=== PATIENT | male | born 2000 | race Two or more races ===

== ENCOUNTER 2025-03-04 22:19 | Inpatient (IN) | payer BC, MEDICAID, SELFPAY ==
--- NOTE | 2025-03-04 22:20 | ECG_ITS ---
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 Measurements Intervals [place] Rate: 62 P: -50 [place]: 166 QRS: 171 QRSD: 109 T: 7 QT: 365 QTc: 372 Interpretive Statements SINUS RHYTHM INCOMPLETE RIGHT BUNDLE BRANCH BLOCK [90+ ms QRS DURATION, TERMINAL R IN V1/V2, 40+ ms S IN I/aVL/V4/V5/V6] POSSIBLE RIGHT VENTRICULAR HYPERTROPHY [SOME/ALL OF: PROMINENT R IN V1, LATE TRANSITION, RAD, SADIA, SSS] No previous ECG available for comparison Electronically Signed On 03-08-2025 09:27:45 CDT by Kevin Romero M.D. [email or web address]
[2025-03-04 22:23] VITALS: BP 144/84; PULSE 90; RESP 18; TEMP 36.8; O2SAT 97; BMI 30.4
--- NOTE | 2025-03-04 22:27 | ED.C_ITS ---
HPI - Psych 2 General: Chief Complaint: Psychiatric Symptoms Stated Complaint: SI Time Seen by Provider: 03/04/25 22:20 History of Present Illness: 24-year-old male with a history of depre ssion who presents emergency room by ambulance with suicidal thoughts. He has a plan of walking into traffic. He says he lost his job today. No self-harm at this point. No fevers. No cough. No chest pain. No abdominal pain. No vomiting. Related Data Home Medications ?Medication ?Instructions ?Recorded ?Confirmed guanfacine 1 mg tablet,extended 1 mg PO DAILY 12/15/24 12/15/24 release 24 hr quetiapine 25 mg tablet 25 mg PO DAILY 12/15/2412/05 Allergies Allergy/AdvReac Type Severity Reaction Status Date / Time No Known Allergies Allergy Unverified 12/15/24 10:17 Review of Systems 2 Narrative: Constitutional symptoms: Negative except as documented in HPI. Skin symptoms: Negative except as documented in HPI. Eye symptoms: Negative except as documented in HPI. ENMT symptoms: Negative except as documented in HPI. Respiratory symptoms: Negative except as documented in HPI. Cardiovascular symptoms: Negative except as documented in HPI. Gastrointestinal symptoms: Negative except as documented in HPI. Genitourinary symptoms: Negative except as documented in HPI. Musculoskeletal symptoms: Negative except as documented in HPI. Neurologic symptoms: Negative except as documented in HPI. Psychiatric symptoms: Negative except as documented in HPI. Endocrine symptoms: Negative except as documented in HPI. [facility] ED 2 PFS: Medical History (Updated 03/04/25 @ 23:11 by Yoanna Blackwell MD) Psychiatric care High-functioning autism spectrum disorder ADHD Anxiety Family History Grandmother Diabetes mellitus, type 2 Social History (Updated 12/15/24 @ 10:24 by Tayler Abdul LPN) Smoking and tobacco/nicotine status: current some day tobacco/nicotine user Alcohol intake: current Alcohol intake frequency: few times a month Substance/Drug Use: current Physical Exam 2 Narrative: EXAM NARRATIVE: General: Alert, no acute distress. Skin: Warm, dry. Head: Normocephalic, atraumatic. Neck: Supple, trachea midline. Eye: Extraocular movements are intact. Ears, nose, mouth and throat: mucosa moist. Cardiovascular: Regular, Normal peripheral perfusion. Respiratory: Lungs are clear to auscultation, respirations are non-labored, breath sounds are equal, Symmetrical chest wall expansion. Gastrointestinal: Soft, Nontender, Non distended Musculoskeletal: Normal ROM, no deformity. Neurological: Alert and oriented, No focal neurological deficit observed. Psychiatric: Cooperative, patient expresses suicidal thoughts Course 2 Vital Signs: Vital signs: Vital Signs Temperature 98.2 F 03/04/25 22: Pulse Rate 90 03/04/25 22:23 Respiratory Rate 18 03/04/25 22: Blood Pressure 144/84 03/04/25 22:23 Pulse Oximetry 97 03/04/25 22:23 Oxygen Delivery Me thod Room Air 03/04/25 22:23 MDM - Psych Medical Decision Making Differential diagnosis: Patient with reported depression and suicidal ideation. concerns for infection, alcohol intoxication, cardiac issues or other medical problems prior to psychiatric admission. Workup: labwork, ekg ordered to evaluate the pathologies and to clear the patient medically prior to psychiatric admission EKG: Time 2336. Rate 62. Normal sinus rhythm, No ST-T changes, no ectopy, normal [place] & QRS intervals, This was reviewed and interpreted by myself the ER physician at 2239. Lab Review: Laboratory results were reviewed and interpreted by myself the emergency room physician. - Medically cleared. - EKG shows no ischemic changes. - Blood alcohol level is negative, -Tylenol and salicylate levels are negative. - Drug screen is positive for marijuana - No signs of infection, urinalysis clear and white count is not elevated - No anemia. - BUN and creatinine are within normal limits. Consultation: I spoke with Dr. Craft who agrees to admission. Assessment and plan: Depression Suicidal ideation -Admission to neuropsychiatric unit for continued evaluation and treatment. - All lab work was reviewed and interpreted personally by myself, the ER physician - Evaluation and treatment of this problem were appropriate in the emergency setting Lab Data 03/04/25 22:35 03/04/25 22:35 Laboratory Results WBC 7.09 10^3/uL (3.29-11.43) 03/04/25 22:35 RBC 5.55 10^6/uL (3.85-5.65) 03/04/25 22: Hgb 16.90 g/dL (11.27-16.99) 03/04/25 22:35 Hct 49.2 % (37-53) 03/04/25 22:35 MCV 88.6 fl (82-101) 03/04/25 22:35 MCH 30.5 pg (27-33) 03/04/25 22:35 MCHC 34.3 g/dL (30-55) 03/04/25 22:35 RDW 11.7 % (12.1-15.1) L 03/04/25 22:35 Plt Count 264 10^3/cmm (157-399) 03/04/25 22:35 MPV 9.7 fL (7.4-10.4) 03/04/25 22:35 Neut % (Auto) 61.8 % 03/04/25 22:35 Lymph % (Auto) 28.6 % 03/04/25 22:35 [place] % (Auto) 8.3 % 03/04/25 22:35 Eos % (Auto) 0.7 % 03/04/25 22: Baso % (Auto) 0.3 % 03/04/25 22:35 Neut # (Auto) 4.38 10^3/uL (1.8-7.7) 03/04/25 22:35 Lymph # (Auto) 2.0 10^3/uL (0.8-4.8) 03/04/25 22:35 [place] # (Auto) 0.6 10^3/uL (0.2-0.9) 03/04/25 22:35 Eos # (Auto) 0.1 10^3/uL (0.0-0.8) 03/04/25 22:35 Baso # (Auto) 0.0 10^3/uL (0.0-0.1) 03/04/25 22:35 Nucleated RBC % (auto) 0 % 03/04/25: Nucleated RBCs # 0.0 /100WBC 03/04/25 22:35 Sodium 141 mmol/L (136-145) 03/04/25 22:35 Potassium 3.9 mmol/L (3.5-5.1) 03/04/25 22: Chloride 100 mmol/L (98-107) 03/04/25 22: Carbon Dioxide 29 mmol/L (22-29) 03/04/25 22:35 Anion Gap 15.9 (5-19) 03/04/25 22:35 BUN 13 mg/dL (6-20) 03/04/25: Creatinine 0.8 mg/dL (0.7-1.2) 03/04/25: GFR Calculation 120.9 mL/min (90-130) 03/04/25 22: Glucose 95 mg/dL (65-115) 03/04/25 22: Calculated Osmolality 292 mOsm/kg (285-295) 03/04/25: Calcium 9.6 mg/dL (8.5-10.5) 03/04/25: Total Bilirubin 1.0 mg/dL (0.15-1.2) 03/04/25 22: AST 28 U/L (0-40) 03/04/25: ALT 36 U/L (0-41) 03/04/25: Alkaline Phosphatase 122 U/L (40-130) 03/04/25: Total Protein 8.7 g/dL (6.6-8.7) 03/04/25 22: Albumin 5.2 g/dL (3.5-5.2) 03/04/25 22: Globulin 3.5 g/dL (1.3-4.6) 03/04/25 22: TSH 1.32 uIU/mL (0.27-4.20) 03/04/25 22: Urine Color Dark yellow (Yellow) A 03/04/25: Urine Appearance Turbid (CLEAR) A 03/04/25: Urine pH 5.0 (5-7) 03/04/25: Ur Specific [place] 1.040 (1.005-1.030) H 03/04/25: Urine Protein Trace (Negative) A 03/04/25: Urine Glucose (UA) Negative (Normal) 03/04/25: Urine Ketones Trace (Negative) 03/04/25: Urine Blood Negative (Negative) 03/04/25: Urine Nitrate Negative (Negative) 03/04/25: Urine Bilirubin 1+ (Negative) H 03/04/25: Urine Urobilinogen 1.0 mg/dL (Negative) 05/01/25 22:32 Ur Leukocyte Esterase Negative (Negative) 03/04/25 22:32 Urine RBC 0-2 /hpf (0-2) 03/04/25 22:32 Urine WBC 0-5 /hpf (0-5) 03/04/25 22:32 Ur Squamous Epith Cells 0-5 /hpf (0-5) 03/04/25 22:32 Amorphous Sediment Not Reportable 03/04/25 22:32 Urine Bacteria None seen /hpf (NONE) 03/04/25 22:32 Hyaline Casts 11.97 /lpf 03/04/25 22:32 Urine Mucus 3+ /hpf 03/04/25 22:32 Salicylates < 0.3 mg/dL (3-10) L 03/04/25 22:35 Urine Opiates Screen Negative ng/mL (Negative) 03/04/25 22:32 Acetaminophen < 5.0 ug/mL (10-30) L 03/04/25 22:35 Ur Barbiturates Screen Negative ng/mL (Negative) 03/04/25 22:32 Ur Phencyclidine Scrn Negative ng/mL (Negative) 03/04/25 22:32 Ur Amphetamines Screen Negative ng/mL (Negative) 03/04/25 22:32 U Benzodiazepines Scrn Negative ng/mL (Negative) 03/04/25 22:32 Urine Cocaine Screen Negative ng/mL (Negative) 03/04/25 22:32 U Marijuana (THC) Screen Positive ng/mL (Negative) H 03/04/25 22:32 Ethyl Alcohol < 10 mg/dL (0-10) 03/04/25 22:35 No radiology studies performed this visit Discharge Plan Discharge Patient Disposition: Admitted As Inpatient Admit Provider: Tonny Craft Clinical Impression: Depression, Suicidal ideation Condition: Stable Coding Level of Care Code ED Security Installation Technician for Janet Castro
--- NOTE | 2025-03-04 22:27 | W.ED.PSYCHS ---
HPI - Psych General: Chief Complaint: Psychiatric Symptoms Stated Complaint: SI Time Seen by Provider: 03/04/25 22:20 History of Present Illness: 24-year-old male with a history of depression who presents emergency room by ambulance with suicidal thoughts. He has a plan of walking into traffic. He says he lost his job today. No self-harm at this point. No fevers. No cough. No chest pain. No abdominal pain. No vomiting. Related Data Home Medications ?Medication ?Instructions ?Recorded ?Confirmed guanfacine 1 mg tablet,extended 1 mg PO DAILY 12/15/24 12/15/24 release 24 hr quetiapine 25 mg tablet 25 mg PO DAILY 12/15/24 12/15/24 Allergies Allergy/AdvReac Type Severity Reaction Status Date / Time No Known Allergies Allergy Unverified 12/15/24 10:17 Review of Systems Narrative: Constitutional symptoms: Negative except as documented in HPI. Skin symptoms: Negative except as documented in HPI. Eye symptoms: Negative except as documented in HPI. ENMT symptoms: Negative except as documented in HPI. Respiratory symptoms: Negative except as documented in HPI. Cardiovascular symptoms: Negative except as documented in HPI. Gastrointestinal symptoms: Negative except as documented in HPI. Genitourinary symptoms: Negative except as documented in HPI. Musculoskeletal symptoms: Negative except as documented in HPI. Neurologic symptoms: Negative except as documented in HPI. Psychiatric symptoms: Negative except as documented in HPI. Endocrine symptoms: Negative except as documented in HPI. [facility]: Medical History (Updated 03/04/25 @ 23:11 by Yoanna Blackwell MD) Psychiatric care High-functioning autism spectrum disorder ADHD Anxiety Family History Grandmother Diabetes mellitus, type 2 Social History (Updated 12/15/24 @ 10:24 by Tayler Abdul LPN) Smoking and tobacco/nicotine status: current some day tobacco/nicotine user Alcohol intake: current Alcohol intake frequency: few times a month Substance/Drug Use: current Physical Exam Narrative: EXAM NARRATIVE: General: Alert, no acute distress. Skin: Warm, dry. Head: Normocephalic, atraumatic. Neck: Supple, trachea midline. Eye: Extraocular movements are intact. Ears, nose, mouth and throat: mucosa moist. Cardiovascular: Regular, Normal peripheral perfusion. Respiratory: Lungs are clear to auscultation, respirations are non-labored, breath sounds are equal, Symmetrical chest wall expansion. Gastrointestinal: Soft, Nontender, Non distended Musculoskeletal: Normal ROM, no deformity. Neurological: Alert and oriented, No focal neurological deficit observed. Psychiatric: Cooperative, patient expresses suicidal thoughts Course Vital Signs: Vital signs: Vital Signs Temperature 98.2 F 03/04/25 22:23 Pulse Rate 90 03/04/25 22:23 Respiratory Rate 18 03/04/25 22:23 Blood Pressure 144/84 03/04/25 22:23 Pulse Oximetry 97 03/04/25 22:23 Oxygen Delivery Me thod Room Air 03/04/25 22:23 MDM - Psych Medical Decision Making Differential diagnosis: Patient with reported depression and suicidal ideation. concerns for infection, alcohol intoxication, cardiac issues or other medical problems prior to psychiatric admission. Workup: labwork, ekg ordered to evaluate the pathologies and to clear the patient medically prior to psychiatric admission EKG: Time 2336. Rate 62. Normal sinus rhythm, No ST-T changes, no ectopy, normal [place] & QRS intervals, This was reviewed and interpreted by myself the ER physician at 2239. Lab Review: Laboratory results were reviewed and interpreted by myself the emergency room physician. - Medically cleared. - EKG shows no ischemic changes. - Blood alcohol level is negative, -Tylenol and salicylate levels are negative. - Drug screen is positive for marijuana - No signs of infection, urinalysis clear and white count is not elevated - No anemia. - BUN and creatinine are within normal limits. Consultation: I spoke with Dr. Craft who agrees to admission. Assessment and plan: Depression Suicidal ideation -Admission to neuropsychiatric unit for continued evaluation and treatment. - All lab work was reviewed and interpreted personally by myself, the ER physician - Evaluation and treatment of this problem were appropriate in the emergency setting Lab Data 03/04/25 22:35 03/04/25 22:35 Laboratory Results WBC 7.09 10^3/uL (3.29-11.43) 03/04/25 22:35 RBC 5.55 10^6/uL (3.85-5.65) 03/04/25 22:35 Hgb 16.90 g/dL (11.27-16.99) 03/04/25 22: Hct 49.2 % (37-53) 03/04/25 22: MCV 88.6 fl (82-101) 03/04/25 22: MCH 30.5 pg (27-33) 03/04/25 22: MCHC 34.3 g/dL (30-55) 03/04/25 22: RDW 11.7 % (12.1-15.1) L 03/04/25 22: Plt Count 264 10^3/cmm (157-399) 03/04/25 22: MPV 9.7 fL (7.4-10.4) 03/04/25 22: Neut % (Auto) 61.8 % 03/04/25 22: Lymph % (Auto) 28.6 % 03/04/25 22: [place] % (Auto) 8.3 % 03/04/25 22: Eos % (Auto) 0.7 % 03/04/25: Baso % (Auto) 0.3 % 03/04/25: Neut # (Auto) 4.38 10^3/uL (1.8-7.7) 03/04/25 22: Lymph # (Auto) 2.0 10^3/uL (0.8-4.8) 03/04/25 22: [place] # (Auto) 0.6 10^3/uL (0.2-0.9) 03/04/25 22: Eos # (Auto) 0.1 10^3/uL (0.0-0.8) 03/04/25: Baso # (Auto) 0.0 10^3/uL (0.0-0.1) 03/04/25 22: Nucleated RBC % (auto) 0 % 03/04/25: Nucleated RBCs # 0.0 /100WBC 03/04/25 22: Sodium 141 mmol/L (136-145) 03/04/25: Potassium 3.9 mmol/L (3.5-5.1) 03/04/25: Chloride 100 mmol/L (98-107) 03/04/25: Carbon Dioxide 29 mmol/L (22-29) 03/04/25: Anion Gap 15.9 (5-19) 05/01/25 22:35 BUN 13 mg/dL (6-20) 03/04/25 22: Creatinine 0.8 mg/dL (0.7-1.2) 03/04/25 22: GFR Calculation 120.9 mL/min (90-130) 03/04/25 22: Glucose 95 mg/dL (65-115) 03/04/25 22: Calculated Osmolality 292 mOsm/kg (285-295) 03/04/25 22: Calcium 9.6 mg/dL (8.5-10.5) 03/04/25: Total Bilirubin 1.0 mg/dL (0.15-1.2) 03/04/25: AST 28 U/L (0-40) 03/04/25: ALT 36 U/L (0-41) 03/04/25: Alkaline Phosphatase 122 U/L (40-130) 03/04/25 22: Total Protein 8.7 g/dL (6.6-8.7) 03/04/25: Albumin 5.2 g/dL (3.5-5.2) 03/04/25: Globulin 3.5 g/dL (1.3-4.6) 03/04/25: TSH 1.32 uIU/mL (0.27-4.20) 03/04/25: Urine Color Dark yellow (Yellow) A 03/04/25: Urine Appearance Turbid (CLEAR) A 03/04/25: Urine pH 5.0 (5-7) 03/04/25: Ur Specific [place] 1.040 (1.005-1.030) H 03/04/25: Urine Protein Trace (Negative) A 03/04/25: Urine Glucose (UA) Negative (Normal) 03/04/25 Urine Ketones Trace (Negative) 03/04/25: Urine Blood Negative (Negative) 03/04/25: Urine Nitrate Negative (Negative) 03/04/25: Urine Bilirubin 1+ (Negative) H 03/04/25: Urine Urobilinogen 1.0 mg/dL (Negative) 03/04/25 Ur Leukocyte Esterase Negative (Negative) 05/01/25 22:32 Urine RBC 0-2 /hpf (0-2) 03/04/25 22:32 Urine WBC 0-5 /hpf (0-5) 03/04/25 22:32 Ur Squamous Epith Cells 0-5 /hpf (0-5) 03/04/25 22:32 Amorphous Sediment Not Reportable 03/04/25 22:32 Urine Bacteria None seen /hpf (NONE) 03/04/25 22:32 Hyaline Casts 11.97 /lpf 03/04/25 22:32 Urine Mucus 3+ /hpf 03/04/25 22:32 Salicylates < 0.3 mg/dL (3-10) L 03/04/25 22:35 Urine Opiates Screen Negative ng/mL (Negative) 03/04/25 22:32 Acetaminophen < 5.0 ug/mL (10-30) L 03/04/25 22:35 Ur Barbiturates Screen Negative ng/mL (Negative) 03/04/25 22:32 Ur Phencyclidine Scrn Negative ng/mL (Negative) 03/04/25 22:32 Ur Amphetamines Screen Negative ng/mL (Negative) 03/04/25 22:32 U Benzodiazepines Scrn Negative ng/mL (Negative) 03/04/25 22:32 Urine Cocaine Screen Negative ng/mL (Negative) 03/04/25 22:32 U Marijuana (THC) Screen Positive ng/mL (Negative) H 03/04/25 22:32 Ethyl Alcohol < 10 mg/dL (0-10) 03/04/25 22:35 No radiology studies performed this visit Discharge Plan Discharge Patient Disposition: Admitted As Inpatient Admit Provider: Tonny Craft Clinical Impression: Depression, Suicidal ideation Condition: Stable Coding Level of Care Code ED Pulmonology Technician for Janet Castro
[2025-03-04 22:40] LABS: Basophils % 0.3 %; Eosinophils # 0.1 10^3/uL (0.0-0.8); Eosinophils % 0.7 %; Hematocrit 49.2 % (37-53); Lymphocytes % 28.6 %; Mean Corpuscular HGB Conc 34.3 g/dL (30-55); Mean Corpuscular Hemoglobin 30.5 pg (27-33); Mean Corpuscular Volume 88.6 fl (82-101); Mean Platelet Volume 9.7 fL (7.4-10.4); Monocytes # 0.6 10^3/uL (0.2-0.9); Monocytes % 8.3 %; Neutrophils # 4.38 10^3/uL (1.8-7.7); Neutrophils % 61.8 %; Nucleated Red Blood Cells % 0 %; Platelet Count 264 10^3/cmm (157-399); Red Blood Count 5.55 10^6/uL (3.85-5.65); Red Cell Distribution Width 11.7 % (12.1-15.1); White Blood Count 7.09 10^3/uL (3.29-11.43)
[2025-03-04 22:50] LABS: Bilirubin Urine 1+ (Negative); Blood Urine Negative (Negative); Glucose Urine UA Negative (Normal); Ketones Urine Trace (Negative); Leukocyte Esterase Urine Negative (Negative); Nitrate Urine Negative (Negative); Protein Urine Trace (Negative); Urine Appearance Turbid (CLEAR); Urine Color Dark Yellow (Yellow)
[2025-03-04 22:55] LABS: Add Urine Microscopic? YES; Bacteria Urine None Seen /hpf; Hyaline Casts Urine 11.97 /lpf; RBC Urine 0-2 /hpf (0-2); Squamous Epithelial Cell Urine 0-5 /hpf (0-5); WBC Urine 0-5 /hpf (0-5)
[2025-03-04 22:58] LABS: Amphetamines Screen Urine Negative (Negative); Barbiturates Screen Urine Negative (Negative); Benzodiazepines Screen Urine Negative (Negative); Cocaine Screen Urine Negative (Negative); Opiate Screen Urine Negative (Negative); PCP Screen Urine Negative (Negative); THC Screen Urine Positive (Negative)
[2025-03-04 23:08] LABS: Alanine Aminotransferase 36 U/L (0-41); Albumin Level 5.2 g/dL (3.5-5.2); Alkaline Phosphatase 122 U/L (40-130); Anion Gap 15.9 (5-19); Aspartate Amino Transferase 28 U/L (0-40); Blood Urea Nitrogen 13 mg/dL (6-20); Calcium 9.6 mg/dL (8.5-10.5); Carbon Dioxide 29 mmol/L (22-29); Chloride 100 mmol/L (98-107); Creatinine Clr Calc Pharmacy 158.4134; Globulin 3.5 g/dL (1.3-4.6); Glomerular Filtration Rate 120.9 mL/min (90-130); Glucose 95 mg/dL (65-115); Osmolality Calculated 292 mOsm/kg (285-295); Potassium 3.9 mmol/L (3.5-5.1); Sodium 141 mmol/L (136-145); Thyroid Stimulating Hormone 1.32 uIU/mL (0.27-4.20); Total Protein 8.7 g/dL (6.6-8.7)
[2025-03-04 23:09] LABS: Acetaminophen < 5.0 ug/mL (10-30); Alcohol Level < 10 mg/dL (0-10); Salicylate < 0.3 mg/dL (3-10)
[2025-03-04 23:10] LABS: UA Slide Review UA Slide Review Perf
[2025-03-04 23:11] LABS: Mucus Urine 3+ /hpf
[2025-03-05 06:17] VITALS: BP 132/61; PULSE 65; O2SAT 96
--- NOTE | 2025-03-05 08:53 | PC.PHAR ---
Pt was taking current medications daily prior to moving but states his doctor told him to take as he needs it. Pt takes once weekly on Saturday-which works best for him.
[2025-03-05 14:24] VITALS: BP 127/89; PULSE 73; RESP 16; TEMP 36.6; O2SAT 99
[2025-03-05 14:25] VITALS: BP 130/85; PULSE 53; O2SAT 97
--- NOTE | 2025-03-05 16:09 | PC.ADMIT ---
[email or web address] Admission Note: The patient,Juan Muller (Jack),24 y/o, was given written information regarding hospital policies, unit procedures and contact persons. Patient's smoking status: current some day smoker. Vital Signs - 8 hr 03/05/25 14:24 03/05/25 14:25 03/05/25 14:26 Temperature 97.8 F Pulse Rate 73 53 L Respiratory Rate 16 Blood Pressure 127/89 130/85 Pulse Oximetry 99 97 Oxygen Delivery Method Room Air ADMITTED FROM [facility] VIA WHEELCHAIR, SECURITY AND ER STAFF AT 1425. PT IS HERE VOLUNTARY. PT STATES HE IS HERE DUE TO LOSING MY JOB AT [employer] AND WANTING TO WALK OUT IN FRONT OF TRAFFIC. PT STATES IT IS COMMON FOR HIM TO HAVE IMPULSIVE THOUGHTS AND AT TIMES ACTS ON THEM. PT STATES HIS LAST SUICIDE ATTEMPT WAS A MONTH AGO WHEN HE CROSSED THE ROAD WITHOUT LOOKING IN AN ATTEMPT TO MAYBE IN MY LIFE OR NOT. PT REPORTS BEING IN MULTIPLE PSYCHIATRIC UNITS FROM THE [facility] TO [facility]. PT REPORTS SUICIDAL THOUGHTS SINCE THE AGE OF 6. PT DENIES BEING SUICIDAL RIGHT NOW BUT STATES HE HAS PASSIVE THOUGHTS FREQUENTLY. DENIES HI. ENDORSES SEEING SHADOWS AND HEARING MUSIC THAT IS NOT THERE. PT ALSO REPORTS SMELLING HALLUCINATIONS. RATES BILATERAL KNEE PAIN 3/10. DECLINES TYLENOL. POSITIVE FOR THC. PT STATES HE TAKES SEROQUEL ONCE A WEEK BECAUSE DUE TO LOTS OF THEREAPY HE CAN NOW MANAGE HIS MENTAL HEALTH. PT DRESSED OUT. NO CONTRABAND FOUND ON PERSON. ORIENTATED TO UNIT. PT DID HAVE A HARD BACK BOOK HE WANTED TO FINISH. PT WAS INSTRUCTED TO SIT ON THE BENCH AND FINISH IT WITH STAFF MONITORING HIM AND THE STAFF WOULD PUT IT IN HIS BELONGINGS. ALL QUESTIONS ANSWERED AND SUPPORT WAS VOICED.
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
[2025-03-05 19:54] VITALS: BP 126/71; PULSE 72; RESP 18; O2SAT 98
[2025-03-06] MEDS: nicotine 2 mg Gum BUCCAL ×3 (02:53→21:07)
[2025-03-06 06:00] VITALS: BP 132/86; PULSE 74; RESP 18; TEMP 36.7; O2SAT 95
[2025-03-06 14:00] VITALS: BP 127/68; PULSE 63; RESP 18; TEMP 37.1; O2SAT 97
--- NOTE | 2025-03-06 15:06 | P.NPUPN_ITS ---
Subjective NPU 2 Subjective: Patient presented today reporting that things are going okay. 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 We discussed the risks, benefits and alternatives of initiating Prozac and he understood and agreed to proceed as is documented in this note. Mental Status Exam 2 MSE Comments: This is an overweight versus obese white male, looking younger than his stated age in hospital scrubs with limited grooming and eye contact. No abnormal movements, except for mild psychomotor psychomotor retardation. Mostly cooperative with exam in mild distress. Speech was mostly slightly increased rate and normal volume. Mood described as better than yesterday; affect congruent and less subdued. Thought process, linear. Thought content: patient denied suicidal or homicidal ideation, there was some paranoia reported but none noted, patient endorsed occasional auditory but no visual hallucinations. Reports feelings of helplessness, hopelessness, worthlessness, and has been struggling with depression which got worse with the loss of his job. There was a near suicide attempt in the past and increasing thoughts with his job loss, and a family history of suicide attempt at least. Stressors include the past homelessness, job loss, family history of bipolar disorder, ADHD, depression, addiction, and trauma in youth. Attention and concentration intact and memory appear somewhat unreliable, but none were formally tested. He is alert and oriented times three. Insight and judgment are limited. Impulse control is impaired. Vitals/I&O/Wt Last Vital Signs Temp 98.0 F 03/06/25 06:00 Pulse 74 03/06/25 06:00 Resp 18 03/06/25 06:00 BP 132/86 03/06/25 06:00 Pulse Ox 95 03/06/25 06:00 O2 Del Method Room Air 03/05/25 14:26 03/06/25 03/06/25 03/06/25 06:59 14:59 22:59 Intake Total 0 / 0 Balance 0 / 0 Weight last 48 hrs Weight 90.718 kg Data NPU 03/04/25 22:35 03/04/25 22:35 A&P Assessment and plan (1) Anxiety: (2) Depression: (3) Suicidal ideation: (4) Major depressive disorder, recurrent: (5) PTSD (post-traumatic stress disorder): (6) Cluster B personality disorder in adult: Plan This is a 24 year old, white male, with a long psychiatric history of reported addiction, trauma, inpatient hospitalization, PTSD, depression and anxiety. The patient is experiencing overwhelming feelings of helplessness, hopelessness, worthlessness, and anxiety. There is a history of depression, anxiety, and some PTSD. There is a family history of bipolar disorder, ADHD, depression, addiction, and suicide. The patient has reported positive findings in many categories and his last and only hospitalization occurring approximately 1 year ago. His very histrionic presentation raises the question of cluster to pathology. The patient is currently not taking significant medication for any of his symptoms or concerns and we discussed starting an SSRI first and then considering other issues. . Patient is interested in exploring the possibility that he might have DID or bipolar disorder further. 1. Started Prozac 20 mg p.o. daily. 2. Continue every 15 minute checks for safety. 3. Encourage individual, group, and milieu therapy. 4. Recommend sober living treatment at the highest level of care to which he is willing to commit. 5. Ensure referral for outpatient therapy especially DBT. 6. Obtain collateral information. Patient had positive findings and almost every area of questioning and told her very dramatic story which raise questions for cluster B pathology. It is not impossible that he could be on the autism spectrum. But his reports of psychosis did not seem concerning for real thought disorder. PDMP PDMP Reviewed: Not Reviewed Attestations NPU 2 Medical Necessity Statement*: Inpatient hospitalization is medically necessary and the clinically appropriate intervention at this time. We will consider medications and make changes as indicated. Patient will be in the hospital for over two midnights. Likely length of stay is 2-4 days. Coding Level of Care Code Acute Code for [facility] Fwd Diagnoses Anxiety F41.9 Depression F32.A Suicidal ideation R45.851 Major depressive disorder, recurrent F33.9 PTSD (post-traumatic stress disorder) F43.10 Cluster B personality disorder in adult F60.9
[2025-03-06] MEDS: fluoxetine 20 mg Capsule PO (15:29)
[2025-03-06 22:00] VITALS: BP 119/60; PULSE 62; RESP 18; TEMP 36.4; O2SAT 96
[2025-03-07] MEDS: hyDROXYzine 25 mg Capsule 50 MG PO ×2 (01:11→20:42)
[2025-03-07] MEDS: trazodone 50 mg Tablet PO ×2 (01:11→20:42)
[2025-03-07 06:00] VITALS: BP 128/83; PULSE 49; RESP 17; O2SAT 96
[2025-03-07] MEDS: fluoxetine 20 mg Capsule PO (08:33)
[2025-03-07 14:00] VITALS: BP 116/72; PULSE 69; RESP 16; TEMP 36.9; O2SAT 97
--- NOTE | 2025-03-07 17:28 | P.NPUPN_ITS ---
Subjective NPU 2 Subjective: 24-year-old male with cluster B patholog y along with major depressive disorder recurrent admitted with suicidal ideation. He had reported that he was feeling more hopeful. He reported no side effects from his Prozac. He had reported 1 previous inpatient hospitalization. He had reported that he had been diagnosed with autism as a child. He had reported that the trazodone had been helpful for his sleep. He had been compliant on the milieu and reported no side effects currently from his medication. Mental Status Exam 2 MSE Comments: This is an overweight versus obese white male, looking younger than his stated age in hospital scrubs with limited grooming and eye contact. No abnormal movements, except for mild psychomotor psychomotor retardation. He was mostly cooperative with exam in mild distress. Speech was mostly slightly increased rate and normal volume. Mood described as good. His affect was brighter today. Thought process was linear. Thought content: patient denied suicidal or homicidal ideation. There was no evidence of delusional thinking. He did not appear to be responding to internal stimuli. He denied any auditory or visual hallucinations. Stressors include the past homelessness, job loss, family history of bipolar disorder, ADHD, depression, addiction, and trauma in youth. Attention and concentration intact and memory appear somewhat unreliable, but none were formally tested. He is alert and oriented times three. Insight and judgment are limited. Impulse control is impaired. Vitals/I&O/Wt Last Vital Signs Temp 97.6 F 03/06/25 22:00 Pulse 49 L 03/07/25 06:00 Resp 17 03/07/25 06:00 BP 128/83 03/07/25 06:00 Pulse Ox 96 03/07/25 06:00 O2 Del Method Room Air 03/07/25 06:00 Weight last 48 hrs Weight 90.174 kg Data NPU 03/04/25 22:35 03/04/25 22:35 A&P Assessment and plan (1) Anxiety: (2) Depression: (3) Suicidal ideation: (4) Major depressive disorder, recurrent: (5) PTSD (post-traumatic stress disorder): (6) Cluster B personality disorder in adult: Plan This is a 24 year old, white male, with a long psychiatric history of reported addiction, trauma, inpatient hospitalization, PTSD, depression and anxiety. The patient is experiencing overwhelming feelings of helplessness, hopelessness, worthlessness, and anxiety. There is a history of depression, anxiety, and some PTSD. There is a family history of bipolar disorder, ADHD, depression, addiction, and suicide. The patient has reported positive findings in many categories and his last and only hospitalization occurring approximately 1 year ago. His very histrionic presentation raises the question of cluster to pathology. The patient is currently not taking significant medication for any of his symptoms or concerns and we discussed starting an SSRI first and then considering other issues. . Patient is interested in exploring the possibility that he might have DID or bipolar disorder further. 1. Started Prozac 20 mg p.o. daily. 2. Continue every 15 minute checks for safety. 3. Encourage individual, group, and milieu therapy. 4. Recommend sober living treatment at the highest level of care to which he is willing to commit. 5. Ensure referral for outpatient therapy especially DBT. 6. Obtain collateral information. Patient had positive findings and almost every area of questioning and told her very dramatic story which raise questions for cluster B pathology. It is not impossible that he could be on the autism spectrum. But his reports of psychosis did not seem concerning for real thought disorder. PDMP PDMP Reviewed: Not Reviewed Attestations NPU 2 Medical Necessity Statement*: Inpatient hospitalization is medically necessary and the clinically appropriate intervention at this time. We will consider medications and make changes as indicated. Likely length of stay is 1-2 days. Coding Level of Care Code Acute Code for g Fwd Diagnoses Anxiety F41.9 Depression F32.A Suicidal ideation R45.851 Major depressive disorder, recurrent F33.9 PTSD (post-traumatic stress disorder) F43.10 Cluster B personality disorder in adult F60.9
[2025-03-07 21:05] VITALS: BP 123/83; PULSE 74; RESP 18; TEMP 36.7; O2SAT 97
[2025-03-08 06:00] VITALS: BP 119/69; PULSE 70; RESP 16; TEMP 36.6; O2SAT 97
[2025-03-08] MEDS: fluoxetine 20 mg Capsule PO (08:02)
--- NOTE | 2025-03-08 14:14 | P.NPUDS_ITS ---
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 22:32 Ur Amphetamines Sc reen Negative ng/mL (N egative) 03/04/25 22:32 U Benzodiazepines Scrn Negative ng/mL (N egative) 03/04/25 22:32 Urine Cocaine Scre en Negative ng/mL (N egative) 03/04/25 22:32 U Marijuana (THC) Screen Positive ng/mL (N egative) H 03/04/25 22:32 Ethyl Alcohol < 10 mg/dL (0-10) 03/04/25 22:35 Vitals: Last Vital Signs Temp 97.9 F 03/08/25 06:00 Pulse 70 03/08/25 06:00 Resp 16 03/08/25 06:00 BP 119/69 03/08/25 06:00 Pulse Ox 97 03/08/25 06:00 O2 Del Method Room Air 03/08/25 06:00 Discharge Plan Discharge Patient Disposition: Home Condition: Stable Prescriptions: New fluoxetine 20 mg Capsule 20 mg PO DAILY 30 Days Qty: 30 1RF trazodone 50 mg tablet 50 mg PO 2100 Qty: 30 1RF Discontinued guanfacine 1 mg tablet extended release 24 hr 1 mg PO Q7D quetiapine 25 mg tablet 25 mg PO Q7D Discharge Orders: Discharge Order (Routine); Ordered 03/08/25 Ordered By: Eric Huston Referrals: [facility] [Outside] - 03/15/25 9:45 am Referral Note: One time hospital follow up safety plan visit. Everardo Borjas MD [Physician, Psychiatry] - 03/19/25 1:30 pm Referral Note: Psych eval with Dr. Borjas. Trell Barcenas MD [Primary Care Provider, [facility]] - 03/15/25 11:30 am Discharge Diet: Usual diet Discharge Activity: Resume usual activity Patient Instructions: Fluoxetine (By mouth) (Fluoxetine HCl, Gaboxetine, Prozac, Prozac Weekly), Trazodone (By mouth) (Desyrel, Desyrel Dividose, Oleptro, Trazamine), Depression (DC), PTSD (Post Traumatic Stress Disorder) (DC), Suicide Prevention (DC), Opioid Safety Discharge Attestations NPU Time Spent in Discharge Care*: less than 30 min Specific Discharge Activities: Specific discharge activities: educating patient and discussing with case management specialist/social workers/dc planners Coding Level of Care Code Acute Code for Chg Fwd Diagnoses Anxiety F41.9 Depression F32.A Suicidal ideation R45.851 Major depressive disorder, recurrent F33.9 PTSD (post-traumatic stress disorder) F43.10 Cluster B personality disorder in adult F60.9
[2025-03-08 14:18] VITALS: BP 119/69; PULSE 70; RESP 16; TEMP 36.6; O2SAT 97
== END 2025-03-08 16:43 | disposition home or self-care (01) | DRG 885 ==
LOC: ER 22:48 → ER IP 23:09 → NP 03-05 13:25
PROVIDERS: Admitting Provider Psychiatry & Neurology Psychiatry; Emergency Provider Emergency Medicine; PCP Family Medicine; Visit Provider Psychiatry & Neurology Psychiatry
DX: F33.9 Major depressive disorder, recurrent, unspecified (principal); R45.851 Suicidal ideations; Z59.12 Inadequate housing utilities; F41.9 Anxiety disorder, unspecified; F43.10 Post-traumatic stress disorder, unspecified; F60.89 Other specific personality disorders; F12.90 Cannabis use, unspecified, uncomplicated; F90.9 Attention-deficit hyperactivity disorder, unspecified type; Z81.8 Family history of other mental and behavioral disorders; Z59.41 Food insecurity; Z59.82 Transportation insecurity
CPT/HCPCS: 36415; 80053; 80306; 80307; 81001; 84443; 85025; 93005; 97150; 97165; 99285; J9999

== ENCOUNTER → 2025-03-30 11:06 | Outpatient (BNVA) | payer OTHER, SELFPAY | PROVIDERS: PCP Family Medicine; Visit Provider Psychiatry & Neurology Psychiatry | DX: F33.9 Major depressive disorder, recurrent, unspecified (principal) | CPT/HCPCS: 80061; 83036 ==